=== PATIENT | female | born 1960 | race Caucasian/White ===

== ENCOUNTER 2018-05-27 12:04 | Inpatient (IN) | payer OTHER ==
[2018-05-27 16:59] LABS: ADD MAN DIFF? NO
[2018-05-27 17:05] LABS: ABNORMAL IP MESSAGE 1; BASOPHILS % 0.6 % (0.0-2.0); EOSINOPHILS # 0.1 10^3/ul (0.0-0.5); EOSINOPHILS % 2.3 % (0.0-7.0); HEMATOCRIT 27.5 % (37.0-47.0); HEMOGLOBIN 8.2 g/dl (12.0-16.0); LYMPHOCYTES # 0.8 10^3/ul (0.8-2.9); LYMPHOCYTES % 22.7 % (15.0-51.0); MEAN CORPUSCULAR HEMOGLOBIN 23.8 pg (29.0-33.0); MEAN CORPUSCULAR HGB CONC 29.8 g/dl (32.0-37.0); MEAN CORPUSCULAR VOLUME 79.9 fl (82.0-101.0); MEAN PLATELET VOLUME 10.7 fl (7.4-10.4); MONOCYTE # 0.3 10^3/ul (0.3-0.9); MONOCYTES % 9.9 % (0.0-11.0); NEUTROPHIL # 2.2 10^3/ul (1.6-7.5); NEUTROPHILS % 64.2 % (39.0-77.0); PLATELET COUNT 82 10^3/UL (140-415); RED BLOOD COUNT 3.44 10^6/ul (4.20-5.40); RED CELL DISTRIBUTION WIDTH 18.4 % (11.5-14.5)
[2018-05-27 17:05] LABS: WHITE BLOOD COUNT 3.4 10^3/ul (4.8-10.8)
[2018-05-27 17:06] LABS: POSITIVE DIFF @See below
[2018-05-27 17:12] LABS: ADD UMIC YES; UR ASCORBIC ACID NEGATIVE (NEGATIVE); UR BACTERIA FEW /HPF (NONE SEEN); UR BILIRUBIN (Dip) NEGATIVE (NEGATIVE); UR BLOOD (Dip) 2+ mg/dL (NEGATIVE); UR CALCIUM OXALATE CRYSTAL FEW /HPF (NONE SEEN); UR CLARITY SLIGHTLY CLOUDY (CLEAR); UR COLOR AMBER (YELLOW); UR GLUCOSE (Dip) NEGATIVE (NEGATIVE); UR KETONES (Dip) NEGATIVE (NEGATIVE); UR LEUKOCYTE ESTERASE (Dip) NEGATIVE Leu/ul (NEGATIVE); UR MUCUS MANY /HPF (NONE SEEN); UR NITRITE (Dip) POSITIVE (NEGATIVE); UR RBC 3 /HPF (0-5); UR SPECIFIC GRAVITY (Dip) 1.015 (1.003-1.030); UR TOTAL PROTEIN (Dip) NEGATIVE (NEGATIVE); UR UROBILINOGEN (Dip) 1+ mg/dL (NEGATIVE); UR WBC 13 /HPF (0-5)
[2018-05-27 17:23] LABS: INR 2.02; PROTIME 22.9 Sec (11.9-14.9); PT RATIO 1.8
[2018-05-27 17:24] LABS: ALANINE AMINOTRANSFERASE 24 IU/L (13-69); ALBUMIN 2.6 g/dl (3.3-4.9); ALBUMIN/GLOBULIN RATIO 0.56; ALKALINE PHOSPHATASE 187 IU/L (42-121); ANION GAP 9 (5-13); ASPARTATE AMINO TRANSFERASE 54 IU/L (15-46); BILIRUBIN,INDIRECT 1.1 mg/dl (0-1.1); BILIRUBIN,TOTAL 1.1 mg/dl (0.2-1.3); BLOOD UREA NITROGEN 4 mg/dl (7-20); CALCIUM 7.8 mg/dl (8.4-10.2); CARBON DIOXIDE 22 mmol/L (21-31); CHLORIDE 109 mmol/L (97-110); CREATININE 0.37 mg/dl (0.44-1.00); Estimated GFR > 60 mL/min (>60); GLUCOSE 136 mg/dl (70-220); LIPASE 178 U/L (23-300); POTASSIUM 3.8 mmol/L (3.5-5.1); SODIUM 140 mmol/L (135-144); TOTAL PROTEIN 7.2 g/dl (6.1-8.1)
[2018-05-27 17:34] LABS: TROPONIN-I < 0.012 ng/ml (0.000-0.120)
[2018-05-27 17:45] LABS: ANISOCYTOSIS 1+ (0-0); BAND NEUTROPHILS % (M) 1 % (0-4); BASOPHILS % (M) 1 % (0-2); HYPOCHROMASIA 1+ (0-0); LYMPHOCYTES #M 0.9 10^3/ul (0.8-2.9); LYMPHOCYTES % (M) 27 % (15-51); MICROCYTOSIS 1+ (0-0); MONOCYTE #M 0.3 10^3/ul (0.3-0.9); MONOCYTES % (M) 11 % (0-11); PLATELET ESTIMATE DECREASED; POLYCHROMASIA 2+ (0-0); SEGMENTED NEUTROPHILS (M) % 60 % (39-77); SMUDGE%M 8 % (0-0)
[2018-05-27] MEDS: LIDOCAINE 1% (MPF) 5 ML VIAL (18:00)
[2018-05-27 18:06] LABS: FLD MN% 42.2 %; FLD RBC 0 /uL; FLD WBC 659 /cmm
[2018-05-27 18:18] LABS: FLD CLARITY SLIGHTLY HAZY; FLD COLOR YELLOW
[2018-05-27 18:18] LABS: FLD TYPE ASCITES
[2018-05-27 18:23] LABS: FLD PMN% 57.8 %
[2018-05-27] MEDS: CEFTRIAXONE 1 GM/50 ML (PMX) 50 ML IVPB (19:37)
[2018-05-27 19:59] LABS: FLUID TOTAL PROTEIN < 2.0 g/dl
[2018-05-27] MEDS ORDERED: BISACODYL (EC) 5 MG TAB PO (20:00)
[2018-05-27] MEDS ORDERED: morphine 2 MG INJ IV (20:00)
[2018-05-27] MEDS ORDERED: DOCUSATE SODIUM 100 MG CAP PO (20:00)
[2018-05-27] MEDS ORDERED: ONDANSETRON 4 MG INJ IV (20:00)
[2018-05-27] MEDS ORDERED: NACL 0.9% 3 ML SYG IV (20:00)
[2018-05-27 20:47] LABS: FLUID AMYLASE < 30 U/L; FLUID TYPE FLUID
[2018-05-27 20:48] LABS: FLUID LD 184 U/L; FLUID TYPE FLUID
[2018-05-27] MEDS ORDERED: CALCIUM/VITAMIN D (500/200) TAB PO (21:00)
[2018-05-27] MEDS: CALCITRIOL 0.25 MCG CAP PO (22:53)
[2018-05-27] MEDS: ATORVASTATIN 20 MG TAB PO (22:53)
[2018-05-27] MEDS: CALCIUM/VITAMIN D (500/200) TAB PO (23:30)
[2018-05-28 04:54] LABS: ADD MAN DIFF? NO; HAAIG REFLEX REFLEX FILED
[2018-05-28 04:58] LABS: WHITE BLOOD COUNT 4.5 10^3/ul (4.8-10.8)
[2018-05-28 04:58] LABS: ABNORMAL IP MESSAGE 1; BASOPHILS % 0.4 % (0.0-2.0); EOSINOPHILS # 0.1 10^3/ul (0.0-0.5); EOSINOPHILS % 1.3 % (0.0-7.0); HEMATOCRIT 24.9 % (37.0-47.0); HEMOGLOBIN 7.6 g/dl (12.0-16.0); LYMPHOCYTES # 1.1 10^3/ul (0.8-2.9); LYMPHOCYTES % 24.5 % (15.0-51.0); MEAN CORPUSCULAR HEMOGLOBIN 23.3 pg (29.0-33.0); MEAN CORPUSCULAR HGB CONC 30.5 g/dl (32.0-37.0); MEAN CORPUSCULAR VOLUME 76.4 fl (82.0-101.0); MEAN PLATELET VOLUME 10.1 fl (7.4-10.4); MONOCYTE # 0.5 10^3/ul (0.3-0.9); MONOCYTES % 10.2 % (0.0-11.0); NEUTROPHIL # 2.9 10^3/ul (1.6-7.5); NEUTROPHILS % 63.4 % (39.0-77.0); PLATELET COUNT 75 10^3/UL (140-415); RED BLOOD COUNT 3.26 10^6/ul (4.20-5.40); RED CELL DISTRIBUTION WIDTH 18.4 % (11.5-14.5)
[2018-05-28 05:12] LABS: HEMOGLOBIN A1C 5.3 % (0-5.9)
[2018-05-28 05:16] LABS: IRON 29 ug/dl (35-150)
[2018-05-28 05:18] LABS: ALANINE AMINOTRANSFERASE 38 IU/L (13-69); ALBUMIN 2.1 g/dl (3.3-4.9); ALKALINE PHOSPHATASE 149 IU/L (42-121); ANION GAP 8 (5-13); ASPARTATE AMINO TRANSFERASE 40 IU/L (15-46); BILIRUBIN,INDIRECT 1.3 mg/dl (0-1.1); BILIRUBIN,TOTAL 1.3 mg/dl (0.2-1.3); BLOOD UREA NITROGEN 3 mg/dl (7-20); CARBON DIOXIDE 23 mmol/L (21-31); CHLORIDE 107 mmol/L (97-110); CHOL/HDL RATIO 3.5 RATIO; CHOLESTEROL 67 mg/dl (100-200); CREATININE 0.35 mg/dl (0.44-1.00); Estimated GFR > 60 mL/min (>60); GLUCOSE 84 mg/dl (70-220); HDL CHOLESTEROL 19 mg/dl (37-92); LDL CHOLESTEROL,CALCULATED 36 mg/dl; MAGNESIUM 1.7 mg/dl (1.7-2.5); POTASSIUM 3.3 mmol/L (3.5-5.1); SODIUM 138 mmol/L (135-144); TOTAL PROTEIN 6.3 g/dl (6.1-8.1); TRIGLYCERIDES 62 mg/dl (0-149)
[2018-05-28 05:25] LABS: POSITIVE DIFF @See below
[2018-05-28 05:27] LABS: % IRON SATURATION 10 % SAT (22-52); TOTAL IRON BINDING CAPACITY 286 ug/dl (241-421)
[2018-05-28 05:49] LABS: HEPATITIS B SURFACE ANTIGEN NEGATIVE (NEGATIVE)
[2018-05-28 05:54] LABS: FERRITIN 10.8 ng/ml (11.1-264.0)
[2018-05-28 06:06] LABS: HEPATITIS B CORE ANTIBODY NEGATIVE (NEGATIVE); HEPATITIS C VIRAL ANTIBODY NEGATIVE (NEGATIVE)
[2018-05-28 06:07] LABS: HEPATITIS B SURFACE ANTIBODY NEGATIVE (NEGATIVE)
[2018-05-28 06:59] LABS: AMMONIA 60 umol/l (9-30)
[2018-05-28 07:45] LABS: LACTIC ACID 1.5 mmol/L (0.5-2.0)
[2018-05-28] MEDS: ACETAMINOPHEN 325 MG TAB PO (08:30)
[2018-05-28] MEDS: LEVOTHYROXINE 75 MCG TAB PO (08:30)
[2018-05-28] MEDS: PANTOPRAZOLE (EC) 40 MG TAB PO (08:30)
[2018-05-28] MEDS: LACTULOSE 30ML CUP PO ×3 (09:31→17:43)
[2018-05-28] MEDS: CALCIUM/VITAMIN D (500/200) TAB PO ×2 (09:31→22:24)
[2018-05-28] MEDS: POTASSIUM CHLORIDE (SR) 20 MEQ TAB PO (09:32)
[2018-05-28] MEDS: CALCITRIOL 0.25 MCG CAP PO ×2 (09:33→22:24)
[2018-05-28 12:47] LABS: OCCULT BLOOD STOOL NEGATIVE (NEGATIVE)
[2018-05-28] MEDS: ALBUMIN HUMAN 25% 100 ML IV ×2 (13:44→19:33)
[2018-05-28] MEDS ORDERED: morphine LIQ (10 MG/5 ML) CUP PO (15:00)
[2018-05-28] MEDS: CEFTRIAXONE 1 GM/50 ML (PMX) 50 ML IVPB (17:40)
[2018-05-28] MEDS: ATORVASTATIN 20 MG TAB PO (22:24)
[2018-05-29] MEDS: ALBUMIN HUMAN 25% 100 ML IV (01:36)
[2018-05-29 04:58] LABS: ADD MAN DIFF? NO
[2018-05-29 05:07] LABS: HEMATOCRIT 22.6 % (37.0-47.0); MEAN CORPUSCULAR HEMOGLOBIN 23.5 pg (29.0-33.0); MEAN CORPUSCULAR HGB CONC 30.1 g/dl (32.0-37.0); MEAN CORPUSCULAR VOLUME 78.2 fl (82.0-101.0); MEAN PLATELET VOLUME 10.7 fl (7.4-10.4); PLATELET COUNT 74 10^3/UL (140-415); RED BLOOD COUNT 2.89 10^6/ul (4.20-5.40); RED CELL DISTRIBUTION WIDTH 18.5 % (11.5-14.5)
[2018-05-29 05:07] LABS: WHITE BLOOD COUNT 2.4 10^3/ul (4.8-10.8)
[2018-05-29 05:26] LABS: AMMONIA 56 umol/l (9-30)
[2018-05-29 05:28] LABS: ALANINE AMINOTRANSFERASE 28 IU/L (13-69); ALBUMIN 2.8 g/dl (3.3-4.9); ALBUMIN/GLOBULIN RATIO 0.77; ALKALINE PHOSPHATASE 151 IU/L (42-121); ANION GAP 13 (5-13); ASPARTATE AMINO TRANSFERASE 35 IU/L (15-46); BLOOD UREA NITROGEN 4 mg/dl (7-20); CARBON DIOXIDE 22 mmol/L (21-31); CHLORIDE 108 mmol/L (97-110); CREATININE 0.34 mg/dl (0.44-1.00); Estimated GFR > 60 mL/min (>60); GLUCOSE 91 mg/dl (70-220); POTASSIUM 3.6 mmol/L (3.5-5.1); SODIUM 143 mmol/L (135-144); TOTAL PROTEIN 6.4 g/dl (6.1-8.1)
[2018-05-29] MEDS: LEVOTHYROXINE 75 MCG TAB PO (06:18)
[2018-05-29] MEDS: PANTOPRAZOLE (EC) 40 MG TAB PO (06:18)
[2018-05-29] MEDS: LACTULOSE 30ML CUP PO ×5 (06:18→23:37)
[2018-05-29 06:36] LABS: POSITIVE DIFF @See below
[2018-05-29 06:40] LABS: HEMOGLOBIN 6.8 g/dl (12.0-16.0)
[2018-05-29 06:41] LABS: PATH REVIEW? YES
[2018-05-29] MEDS: CALCIUM/VITAMIN D (500/200) TAB PO ×2 (09:05→21:02)
[2018-05-29] MEDS: CALCITRIOL 0.25 MCG CAP PO ×2 (09:05→21:02)
[2018-05-29 09:47] LABS: ANISOCYTOSIS 2+ (0-0); BAND NEUTROPHILS % (M) 3 % (0-4); EOSINOPHILS % (M) 1 % (0-7); HYPOCHROMASIA 3+ (0-0); LYMPHOCYTES #M 0.4 10^3/ul (0.8-2.9); LYMPHOCYTES % (M) 18 % (15-51); MICROCYTOSIS 2+ (0-0); MONOCYTE #M 0.2 10^3/ul (0.3-0.9); MONOCYTES % (M) 9 % (0-11); OVALOCYTES 1+ (0-0); PLATELET ESTIMATE DECREASED; POIKILOCYTOSIS 1+ (0-0); POLYCHROMASIA 3+ (0-0); REACTIVE LYMPHOCYTES% (M) 1 % (0-0); SEG NEUT #M 1.6 10^3/ul (1.6-7.5); SEGMENTED NEUTROPHILS (M) % 68 % (39-77); SMUDGE%M 14 % (0-0)
[2018-05-29 10:34] LABS: HEMATOCRIT 23.8 % (37.0-47.0)
[2018-05-29 11:34] LABS: IMMEDIATE SPIN CROSSMATCH 1 3
[2018-05-29] MEDS: SOD FERRIC GLUC COMPLX 125 MG in SOD CHLORIDE 0.9% 100 ML IVPB (15:25)
[2018-05-29] MEDS: CEFTRIAXONE 1 GM/50 ML (PMX) 50 ML IVPB (18:20)
[2018-05-29] MEDS: ACETAMINOPHEN 325 MG TAB PO (19:45)
[2018-05-29] MEDS: RIFAXIMIN 550 MG TAB PO (21:02)
[2018-05-30 05:18] LABS: ADD MAN DIFF? NO
[2018-05-30 05:23] LABS: ABNORMAL IP MESSAGE 1; BASOPHILS % 0.7 % (0.0-2.0); EOSINOPHILS # 0.1 10^3/ul (0.0-0.5); EOSINOPHILS % 3.5 % (0.0-7.0); LYMPHOCYTES % 35.1 % (15.0-51.0); MEAN CORPUSCULAR HEMOGLOBIN 24.1 pg (29.0-33.0); MEAN CORPUSCULAR VOLUME 77.7 fl (82.0-101.0); MEAN PLATELET VOLUME 10.3 fl (7.4-10.4); MONOCYTE # 0.4 10^3/ul (0.3-0.9); MONOCYTES % 12.8 % (0.0-11.0); NEUTROPHIL # 1.3 10^3/ul (1.6-7.5); NEUTROPHILS % 47.5 % (39.0-77.0); PLATELET COUNT 76 10^3/UL (140-415); RED BLOOD COUNT 3.73 10^6/ul (4.20-5.40); RED CELL DISTRIBUTION WIDTH 18.3 % (11.5-14.5)
[2018-05-30 05:23] LABS: WHITE BLOOD COUNT 2.8 10^3/ul (4.8-10.8)
[2018-05-30 05:30] LABS: POSITIVE DIFF @See below
[2018-05-30] MEDS: PANTOPRAZOLE (EC) 40 MG TAB PO (05:42)
[2018-05-30] MEDS: LACTULOSE 30ML CUP PO ×4 (05:42→23:01)
[2018-05-30] MEDS: LEVOTHYROXINE 75 MCG TAB PO (05:42)
[2018-05-30 05:44] LABS: ALANINE AMINOTRANSFERASE 28 IU/L (13-69); ALBUMIN 2.9 g/dl (3.3-4.9); ALBUMIN/GLOBULIN RATIO 0.74; ALKALINE PHOSPHATASE 146 IU/L (42-121); ANION GAP 14 (5-13); ASPARTATE AMINO TRANSFERASE 44 IU/L (15-46); BLOOD UREA NITROGEN 3 mg/dl (7-20); CALCIUM 8.2 mg/dl (8.4-10.2); CARBON DIOXIDE 20 mmol/L (21-31); CHLORIDE 110 mmol/L (97-110); CREATININE 0.38 mg/dl (0.44-1.00); Estimated GFR > 60 mL/min (>60); GLUCOSE 61 mg/dl (70-220); POTASSIUM 3.7 mmol/L (3.5-5.1); SODIUM 144 mmol/L (135-144); TOTAL PROTEIN 6.8 g/dl (6.1-8.1)
[2018-05-30 05:57] LABS: PHOSPHORUS 3.9 mg/dl (2.5-4.9)
[2018-05-30 05:57] LABS: MAGNESIUM 1.9 mg/dl (1.7-2.5)
[2018-05-30 05:58] LABS: AMMONIA 47 umol/l (9-30)
[2018-05-30] MEDS: RIFAXIMIN 550 MG TAB PO ×2 (09:52→20:26)
[2018-05-30] MEDS: CALCITRIOL 0.25 MCG CAP PO ×2 (09:52→20:26)
[2018-05-30] MEDS: BISACODYL (EC) 5 MG TAB PO ×2 (09:52→17:08)
[2018-05-30] MEDS: CALCIUM/VITAMIN D (500/200) TAB PO ×2 (09:52→20:27)
[2018-05-30] MEDS: POLYETHYLENE GLYCOL 3350 119 GM POWDER PO ×2 (10:00→17:08)
[2018-05-30 10:37] LABS: OCCULT BLOOD STOOL NEGATIVE (NEGATIVE)
[2018-05-30] MEDS: MAGNESIUM CITRATE 300 ML BTL PO (11:18)
[2018-05-30] MEDS: SOD FERRIC GLUC COMPLX 125 MG in SOD CHLORIDE 0.9% 100 ML IVPB (12:35)
[2018-05-30] MEDS: PHYTONADIONE 10 MG/ML INJ SC (17:08)
[2018-05-30] MEDS: CEFTRIAXONE 1 GM/50 ML (PMX) 50 ML IVPB (17:39)
[2018-05-30] MEDS: ZOLPIDEM 5 MG TAB PO (23:01)
[2018-05-31 04:53] LABS: ADD MAN DIFF? NO
[2018-05-31 04:57] LABS: ABNORMAL IP MESSAGE 1; BASOPHILS % 0.8 % (0.0-2.0); EOSINOPHILS # 0.1 10^3/ul (0.0-0.5); EOSINOPHILS % 3.8 % (0.0-7.0); HEMATOCRIT 29.8 % (37.0-47.0); LYMPHOCYTES # 0.9 10^3/ul (0.8-2.9); LYMPHOCYTES % 33.8 % (15.0-51.0); MEAN CORPUSCULAR HEMOGLOBIN 23.6 pg (29.0-33.0); MEAN CORPUSCULAR HGB CONC 30.2 g/dl (32.0-37.0); MEAN CORPUSCULAR VOLUME 78.2 fl (82.0-101.0); MEAN PLATELET VOLUME 9.7 fl (7.4-10.4); MONOCYTE # 0.3 10^3/ul (0.3-0.9); MONOCYTES % 10.5 % (0.0-11.0); NEUTROPHIL # 1.4 10^3/ul (1.6-7.5); NEUTROPHILS % 51.1 % (39.0-77.0); PLATELET COUNT 67 10^3/UL (140-415); RED BLOOD COUNT 3.81 10^6/ul (4.20-5.40); RED CELL DISTRIBUTION WIDTH 18.6 % (11.5-14.5)
[2018-05-31 04:57] LABS: WHITE BLOOD COUNT 2.7 10^3/ul (4.8-10.8)
[2018-05-31 05:25] LABS: PHOSPHORUS 4.6 mg/dl (2.5-4.9)
[2018-05-31 05:25] LABS: MAGNESIUM 1.9 mg/dl (1.7-2.5)
[2018-05-31] MEDS: PANTOPRAZOLE (EC) 40 MG TAB PO (05:26)
[2018-05-31] MEDS: LACTULOSE 30ML CUP PO ×4 (05:26→22:59)
[2018-05-31] MEDS: LEVOTHYROXINE 75 MCG TAB PO (05:26)
[2018-05-31 05:27] LABS: AMMONIA 53 umol/l (9-30)
[2018-05-31 05:30] LABS: ALANINE AMINOTRANSFERASE 33 IU/L (13-69); ALBUMIN 2.8 g/dl (3.3-4.9); ALBUMIN/GLOBULIN RATIO 0.73; ALKALINE PHOSPHATASE 132 IU/L (42-121); ANION GAP 13 (5-13); ASPARTATE AMINO TRANSFERASE 48 IU/L (15-46); BILIRUBIN,INDIRECT 1.6 mg/dl (0-1.1); BILIRUBIN,TOTAL 1.6 mg/dl (0.2-1.3); BLOOD UREA NITROGEN 7 mg/dl (7-20); CALCIUM 8.2 mg/dl (8.4-10.2); CARBON DIOXIDE 22 mmol/L (21-31); CHLORIDE 111 mmol/L (97-110); CREATININE 0.41 mg/dl (0.44-1.00); Estimated GFR > 60 mL/min (>60); GLUCOSE 76 mg/dl (70-220); INR 2.58; PROTIME 27.7 Sec (11.9-14.9); PT RATIO 2.2; SODIUM 146 mmol/L (135-144); TOTAL PROTEIN 6.6 g/dl (6.1-8.1)
[2018-05-31 05:41] LABS: POSITIVE DIFF @See below
[2018-05-31] MEDS ORDERED: EPHEDrine SULFATE 50 MG/5 ML SYG (07:00)
[2018-05-31] MEDS: CALCIUM/VITAMIN D (500/200) TAB PO ×2 (09:16→20:25)
[2018-05-31] MEDS: CALCITRIOL 0.25 MCG CAP PO ×2 (09:16→20:25)
[2018-05-31] MEDS: RIFAXIMIN 550 MG TAB PO ×2 (09:16→20:25)
[2018-05-31] MEDS: PHYTONADIONE 10 MG/ML INJ SC (09:17)
[2018-05-31 10:16] LABS: ALPHA 1 ANTITRYPSIN 128 mg/dL (83-199)
[2018-05-31 11:06] LABS: MITOCHONDRIAL TB NEGATIVE (NEGATIVE)
[2018-05-31] MEDS: PROPOFOL 20 ML (13:00)
[2018-05-31] MEDS ORDERED: ONDANSETRON 4 MG INJ IV (13:30)
[2018-05-31] MEDS: SOD FERRIC GLUC COMPLX 125 MG in SOD CHLORIDE 0.9% 100 ML IVPB (13:58)
[2018-05-31] MEDS: POTASSIUM CHLORIDE 100 ML IVPB (16:08)
[2018-05-31] MEDS: CEFTRIAXONE 1 GM/50 ML (PMX) 50 ML IVPB (18:15)
[2018-05-31 19:38] LABS: ANA SCREEN POSITIVE (NEGATIVE)
[2018-05-31 20:22] LABS: ANA PATTERN HOMOGENEOUS
[2018-05-31] MEDS: ZOLPIDEM 5 MG TAB PO (22:59)
[2018-06-01] MEDS: PANTOPRAZOLE (EC) 40 MG TAB PO ×2 (05:44→21:29)
[2018-06-01] MEDS: LEVOTHYROXINE 75 MCG TAB PO (05:44)
[2018-06-01] MEDS: LACTULOSE 30ML CUP PO ×4 (05:44→23:02)
[2018-06-01 05:48] LABS: ABNORMAL IP MESSAGE 1; HEMATOCRIT 26.6 % (37.0-47.0); HEMOGLOBIN 8.1 g/dl (12.0-16.0); MEAN CORPUSCULAR HGB CONC 30.5 g/dl (32.0-37.0); MEAN CORPUSCULAR VOLUME 78.9 fl (82.0-101.0); MEAN PLATELET VOLUME 10.3 fl (7.4-10.4); NUCLEATED RED BLOOD CELLS% 0.9 /100WBC (0.0-0.0); PLATELET COUNT 67 10^3/UL (140-415); RED BLOOD COUNT 3.37 10^6/ul (4.20-5.40); RED CELL DISTRIBUTION WIDTH 18.7 % (11.5-14.5)
[2018-06-01 05:48] LABS: WHITE BLOOD COUNT 2.3 10^3/ul (4.8-10.8)
[2018-06-01 06:08] LABS: PHOSPHORUS 3.9 mg/dl (2.5-4.9)
[2018-06-01 06:08] LABS: MAGNESIUM 1.8 mg/dl (1.7-2.5)
[2018-06-01 06:17] LABS: ADD MAN DIFF? YES; POSITIVE DIFF @See below
[2018-06-01 06:19] LABS: ALANINE AMINOTRANSFERASE 36 IU/L (13-69); ALBUMIN 2.6 g/dl (3.3-4.9); ALKALINE PHOSPHATASE 139 IU/L (42-121); ANION GAP 8 (5-13); ASPARTATE AMINO TRANSFERASE 50 IU/L (15-46); BILIRUBIN,INDIRECT 1.3 mg/dl (0-1.1); BILIRUBIN,TOTAL 1.3 mg/dl (0.2-1.3); BLOOD UREA NITROGEN 7 mg/dl (7-20); CALCIUM 8.1 mg/dl (8.4-10.2); CARBON DIOXIDE 22 mmol/L (21-31); CHLORIDE 113 mmol/L (97-110); CREATININE 0.37 mg/dl (0.44-1.00); Estimated GFR > 60 mL/min (>60); GLUCOSE 74 mg/dl (70-220); SODIUM 143 mmol/L (135-144); TOTAL PROTEIN 6.3 g/dl (6.1-8.1)
[2018-06-01 06:31] LABS: POTASSIUM 2.9 mmol/L (3.5-5.1)
[2018-06-01 07:35] LABS: ANISOCYTOSIS 1+ (0-0); BAND NEUTROPHILS % (M) 2 % (0-4); BURR CELLS 1+ (0-0); EOSINOPHILS % (M) 2 % (0-7); GIANT THROMBO% (M) 3 % (0-0); LYMPHOCYTES #M 0.3 10^3/ul (0.8-2.9); LYMPHOCYTES % (M) 15 % (15-51); MONOCYTE #M 0.1 10^3/ul (0.3-0.9); MONOCYTES % (M) 5 % (0-11); OVALOCYTES 1+ (0-0); PLATELET ESTIMATE DECREASED; POIKILOCYTOSIS 1+ (0-0); POLYCHROMASIA 1+ (0-0); SEG NEUT #M 1.7 10^3/ul (1.6-7.5); SEGMENTED NEUTROPHILS (M) % 76 % (39-77); SMUDGE%M 40 % (0-0); TARGET CELLS 1+ (0-0)
[2018-06-01] MEDS: POTASSIUM CHLORIDE (SR) 20 MEQ TAB PO ×2 (08:10→12:49)
[2018-06-01] MEDS: RIFAXIMIN 550 MG TAB PO ×2 (08:11→21:29)
[2018-06-01] MEDS: CALCIUM/VITAMIN D (500/200) TAB PO ×2 (08:11→21:29)
[2018-06-01] MEDS: CALCITRIOL 0.25 MCG CAP PO ×2 (08:11→21:29)
[2018-06-01] MEDS: SOD FERRIC GLUC COMPLX 125 MG in SOD CHLORIDE 0.9% 100 ML IVPB (12:50)
[2018-06-01] MEDS ORDERED: POTASSIUM CHLORIDE 20 MEQ POWDER FOR ORAL SOLN PO (13:00)
[2018-06-01] MEDS: CEFTRIAXONE 1 GM/50 ML (PMX) 50 ML IVPB (17:09)
[2018-06-01] MEDS: SUCRALFATE (100 MG/ML) 10ML CUP PO ×2 (17:09→21:29)
[2018-06-01] MEDS: PROPRANOLOL 10 MG TAB PO (21:00)
[2018-06-01] MEDS: LACTOBACILLUS RHAMNOSUS CAP PO (21:29)
[2018-06-01] MEDS: POTASSIUM CHLORIDE 20 MEQ POWDER FOR ORAL SOLN PO (21:30)
[2018-06-01] MEDS: ZOLPIDEM 5 MG TAB PO (23:02)
[2018-06-02 05:13] LABS: ADD MAN DIFF? NO
[2018-06-02 05:20] LABS: WHITE BLOOD COUNT 2.5 10^3/ul (4.8-10.8)
[2018-06-02 05:20] LABS: ABNORMAL IP MESSAGE 1; BASOPHILS % 0.4 % (0.0-2.0); EOSINOPHILS # 0.1 10^3/ul (0.0-0.5); EOSINOPHILS % 4.1 % (0.0-7.0); HEMATOCRIT 28.3 % (37.0-47.0); HEMOGLOBIN 8.7 g/dl (12.0-16.0); LYMPHOCYTES # 0.8 10^3/ul (0.8-2.9); LYMPHOCYTES % 34.3 % (15.0-51.0); MEAN CORPUSCULAR HEMOGLOBIN 24.3 pg (29.0-33.0); MEAN CORPUSCULAR HGB CONC 30.7 g/dl (32.0-37.0); MEAN CORPUSCULAR VOLUME 79.1 fl (82.0-101.0); MEAN PLATELET VOLUME 10.3 fl (7.4-10.4); MONOCYTE # 0.2 10^3/ul (0.3-0.9); NEUTROPHIL # 1.3 10^3/ul (1.6-7.5); NEUTROPHILS % 51.8 % (39.0-77.0); PLATELET COUNT 67 10^3/UL (140-415); RED BLOOD COUNT 3.58 10^6/ul (4.20-5.40); RED CELL DISTRIBUTION WIDTH 19.7 % (11.5-14.5)
[2018-06-02 05:26] LABS: POSITIVE DIFF @See below
[2018-06-02 05:32] LABS: ANION GAP 6 (5-13); BLOOD UREA NITROGEN 4 mg/dl (7-20); CALCIUM 8.6 mg/dl (8.4-10.2); CARBON DIOXIDE 22 mmol/L (21-31); CHLORIDE 117 mmol/L (97-110); CREATININE 0.38 mg/dl (0.44-1.00); Estimated GFR > 60 mL/min (>60); GLUCOSE 74 mg/dl (70-220); POTASSIUM 4.3 mmol/L (3.5-5.1); SODIUM 145 mmol/L (135-144)
[2018-06-02] MEDS: LACTULOSE 30ML CUP PO ×3 (05:39→21:06)
[2018-06-02] MEDS: LEVOTHYROXINE 75 MCG TAB PO (05:39)
[2018-06-02 05:44] LABS: AMMONIA 41 umol/l (9-30)
[2018-06-02] MEDS: SUCRALFATE (100 MG/ML) 10ML CUP PO ×4 (08:26→20:50)
[2018-06-02] MEDS: RIFAXIMIN 550 MG TAB PO ×2 (08:26→20:51)
[2018-06-02] MEDS: CALCITRIOL 0.25 MCG CAP PO ×2 (08:26→20:51)
[2018-06-02] MEDS: PANTOPRAZOLE (EC) 40 MG TAB PO ×2 (08:26→20:51)
[2018-06-02] MEDS: LACTOBACILLUS RHAMNOSUS CAP PO ×2 (08:27→20:51)
[2018-06-02] MEDS: POTASSIUM CHLORIDE 20 MEQ POWDER FOR ORAL SOLN PO ×2 (08:27→20:50)
[2018-06-02] MEDS: CALCIUM/VITAMIN D (500/200) TAB PO ×2 (08:27→20:50)
[2018-06-02] MEDS: PROPRANOLOL 10 MG TAB PO ×2 (08:31→20:56)
[2018-06-02] MEDS: SOD FERRIC GLUC COMPLX 125 MG in SOD CHLORIDE 0.9% 100 ML IVPB (12:50)
[2018-06-02] MEDS: CEFTRIAXONE 1 GM/50 ML (PMX) 50 ML IVPB (17:22)
[2018-06-02] MEDS: ACETAMINOPHEN 325 MG TAB PO (20:57)
[2018-06-03 04:59] LABS: ADD MAN DIFF? NO
[2018-06-03 05:05] LABS: WHITE BLOOD COUNT 2.7 10^3/ul (4.8-10.8)
[2018-06-03 05:06] LABS: ABNORMAL IP MESSAGE 1; BASOPHILS % 0.4 % (0.0-2.0); EOSINOPHILS # 0.2 10^3/ul (0.0-0.5); EOSINOPHILS % 5.5 % (0.0-7.0); HEMATOCRIT 29.6 % (37.0-47.0); HEMOGLOBIN 8.9 g/dl (12.0-16.0); LYMPHOCYTES # 0.8 10^3/ul (0.8-2.9); LYMPHOCYTES % 30.3 % (15.0-51.0); MEAN CORPUSCULAR HEMOGLOBIN 24.1 pg (29.0-33.0); MEAN CORPUSCULAR HGB CONC 30.1 g/dl (32.0-37.0); MEAN CORPUSCULAR VOLUME 80.2 fl (82.0-101.0); MONOCYTE # 0.3 10^3/ul (0.3-0.9); MONOCYTES % 9.2 % (0.0-11.0); NEUTROPHIL # 1.5 10^3/ul (1.6-7.5); NEUTROPHILS % 54.2 % (39.0-77.0); PLATELET COUNT 66 10^3/UL (140-415); RED BLOOD COUNT 3.69 10^6/ul (4.20-5.40); RED CELL DISTRIBUTION WIDTH 20.2 % (11.5-14.5)
[2018-06-03 05:26] LABS: ALANINE AMINOTRANSFERASE 33 IU/L (13-69); ALBUMIN 2.7 g/dl (3.3-4.9); ALBUMIN/GLOBULIN RATIO 0.67; ALKALINE PHOSPHATASE 166 IU/L (42-121); ANION GAP 3 (5-13); ASPARTATE AMINO TRANSFERASE 60 IU/L (15-46); BILIRUBIN,INDIRECT 1.3 mg/dl (0-1.1); BILIRUBIN,TOTAL 1.3 mg/dl (0.2-1.3); BLOOD UREA NITROGEN 4 mg/dl (7-20); CALCIUM 8.8 mg/dl (8.4-10.2); CARBON DIOXIDE 23 mmol/L (21-31); CHLORIDE 115 mmol/L (97-110); CREATININE 0.41 mg/dl (0.44-1.00); Estimated GFR > 60 mL/min (>60); GLUCOSE 81 mg/dl (70-220); POTASSIUM 4.7 mmol/L (3.5-5.1); SODIUM 141 mmol/L (135-144); TOTAL PROTEIN 6.7 g/dl (6.1-8.1)
[2018-06-03 05:30] LABS: AMMONIA 20 umol/l (9-30)
[2018-06-03] MEDS: LACTULOSE 30ML CUP PO ×2 (05:37→12:30)
[2018-06-03] MEDS: LEVOTHYROXINE 75 MCG TAB PO (05:37)
[2018-06-03 06:16] LABS: POSITIVE DIFF @See below
[2018-06-03] MEDS: LACTOBACILLUS RHAMNOSUS CAP PO (08:57)
[2018-06-03] MEDS: CALCITRIOL 0.25 MCG CAP PO (08:57)
[2018-06-03] MEDS: CALCIUM/VITAMIN D (500/200) TAB PO (08:58)
[2018-06-03] MEDS: POTASSIUM CHLORIDE 20 MEQ POWDER FOR ORAL SOLN PO (08:58)
[2018-06-03] MEDS: PANTOPRAZOLE (EC) 40 MG TAB PO (08:58)
[2018-06-03] MEDS: SUCRALFATE (100 MG/ML) 10ML CUP PO ×3 (08:58→17:51)
[2018-06-03] MEDS: PROPRANOLOL 10 MG TAB PO (08:58)
[2018-06-03] MEDS: RIFAXIMIN 550 MG TAB PO (08:58)
[2018-06-03] MEDS ORDERED: LACTULOSE 30ML CUP PO (22:00)
[2018-06-03] MEDS ORDERED: metroNIDAZOLE 500 MG TAB PO (22:00)
[2018-06-04] MEDS ORDERED: LEVOFLOXACIN 500 MG TAB PO (06:00)
== END 2018-06-03 18:45 | disposition home or self-care (01) | DRG 432 ==
LOC: E/R 12:04 → MS1 19:32
PROC: 0W9G3ZX Drainage of Peritoneal Cavity, Percutaneous Approach, Diagnostic (ICD-10-PCS; principal; 2018-05-31 11:44)
PROC: 0DJ08ZZ Inspection of Upper Intestinal Tract, Via Natural or Artificial Opening Endoscopic (ICD-10-PCS; 2018-05-31 11:44)
PROC: 0DJD8ZZ Inspection of Lower Intestinal Tract, Via Natural or Artificial Opening Endoscopic (ICD-10-PCS; 2018-05-31 11:44)
PROC: 30233N0 Transfusion of Autologous Red Blood Cells into Peripheral Vein, Percutaneous Approach (ICD-10-PCS; 2018-05-31 11:44)
DX: K74.69 Other cirrhosis of liver (principal); K65.2 Spontaneous bacterial peritonitis; D61.818 Other pancytopenia; D68.4 Acquired coagulation factor deficiency; E87.2 Acidosis; I85.10 Secondary esophageal varices without bleeding; N39.0 Urinary tract infection, site not specified; K72.90 Hepatic failure, unspecified without coma; E03.9 Hypothyroidism, unspecified; E78.5 Hyperlipidemia, unspecified; K25.9 Gastric ulcer, unspecified as acute or chronic, without hemorrhage or perforation; K64.8 Other hemorrhoids; K22.8 Other specified diseases of esophagus; E86.0 Dehydration
CPT/HCPCS: 36430; 74182; 76705; 80048; 80053; 80061; 81001; 82042; 82103; 82105; 82140; 82150; 82270; 82728; 83036; 83540; 83605; 83615; 83690; 83735; 83986; 84100; 84157; 84443; 84484; 85014; 85018; 85025; 85610; 86038; 86255; 86644; 86704; 86706; 86708; 86709; 86803; 86850; 86900; 86901; 86920; 87040; 87045; 87070; 87075; 87086; 87102; 87116; 87177; 87205; 87340; 88104; 88305; 89051; 99285-25

== ENCOUNTER 2019-01-07 15:59 | Emergency (ER) | payer OTHER ==
[2019-01-07 16:37] LABS: ADD MAN DIFF? NO
[2019-01-07 16:42] LABS: ABNORMAL IP MESSAGE 1; BASOPHILS % 0.7 % (0.0-2.0); EOSINOPHILS # 0.1 10^3/ul (0.0-0.5); EOSINOPHILS % 3.3 % (0.0-7.0); HEMATOCRIT 30.3 % (37.0-47.0); HEMOGLOBIN 9.9 g/dl (12.0-16.0); LYMPHOCYTES # 1.2 10^3/ul (0.8-2.9); LYMPHOCYTES % 29.4 % (15.0-51.0); MEAN CORPUSCULAR HGB CONC 32.7 g/dl (32.0-37.0); MEAN PLATELET VOLUME 10.7 fl (7.4-10.4); MONOCYTE # 0.5 10^3/ul (0.3-0.9); MONOCYTES % 10.9 % (0.0-11.0); NEUTROPHIL # 2.4 10^3/ul (1.6-7.5); NEUTROPHILS % 55.7 % (39.0-77.0); PLATELET COUNT 56 10^3/UL (140-415); RED BLOOD COUNT 3.19 10^6/ul (4.20-5.40); RED CELL DISTRIBUTION WIDTH 16.9 % (11.5-14.5)
[2019-01-07 16:42] LABS: WHITE BLOOD COUNT 4.2 10^3/ul (4.8-10.8)
[2019-01-07] MEDS: HYDROCODONE/APAP (10/325) TAB PO (16:47)
[2019-01-07] MEDS: ONDANSETRON (ODT) 4 MG TAB ODT (16:47)
[2019-01-07 16:59] LABS: ALANINE AMINOTRANSFERASE 31 IU/L (13-69); ALBUMIN 2.6 g/dl (3.3-4.9); ALBUMIN/GLOBULIN RATIO 0.59; ALKALINE PHOSPHATASE 252 IU/L (42-121); ANION GAP 5 (5-13); ASPARTATE AMINO TRANSFERASE 46 IU/L (15-46); BILIRUBIN,INDIRECT 1.4 mg/dl (0-1.1); BILIRUBIN,TOTAL 1.7 mg/dl (0.2-1.3); BLOOD UREA NITROGEN 5 mg/dl (7-20); CALCIUM 8.3 mg/dl (8.4-10.2); CARBON DIOXIDE 23 mmol/L (21-31); CHLORIDE 108 mmol/L (97-110); CREATININE 0.43 mg/dl (0.44-1.00); Estimated GFR > 60 mL/min (>60); GLUCOSE 132 mg/dl (70-220); POTASSIUM 3.6 mmol/L (3.5-5.1); SODIUM 136 mmol/L (135-144)
[2019-01-07 17:02] LABS: POSITIVE DIFF @See below
[2019-01-07 17:04] LABS: INR 1.96; PROTIME 22.4 Sec (11.9-14.9); PT RATIO 1.8
[2019-01-07 17:05] LABS: PARTIAL THROMBOPLASTIN TIME 44.9 Sec (23.0-35.0)
[2019-01-07] MEDS: LIDOCAINE 1% (MPF) 5 ML VIAL (18:22)
== END 2019-01-07 18:18 | disposition home or self-care (01) ==
LOC: E/R 15:59
DX: S80.11XA Contusion of right lower leg, initial encounter (principal); R18.8 Other ascites; R40.2142 Coma scale, eyes open, spontaneous, at arrival to emergency department; R40.2362 Coma scale, best motor response, obeys commands, at arrival to emergency department; R07.81 Pleurodynia; W19.XXXA Unspecified fall, initial encounter; Y92.9 Unspecified place or not applicable
CPT/HCPCS: 71045; 73590; 80053; 85025; 85610; 85730; 99285-25

== ENCOUNTER 2019-01-26 10:41 | Emergency (ER) | payer OTHER ==
[2019-01-26] MEDS: LIDOCAINE 1% (MPF) 5 ML VIAL (14:49)
== END 2019-01-26 15:10 | disposition home or self-care (01) ==
LOC: E/R 10:41
DX: K74.60 Unspecified cirrhosis of liver (principal); R18.8 Other ascites; R74.0 Nonspecific elevation of levels of transaminase and lactic acid dehydrogenase [LDH]; E11.9 Type 2 diabetes mellitus without complications; E03.9 Hypothyroidism, unspecified; Z79.84 Long term (current) use of oral hypoglycemic drugs
CPT/HCPCS: 49083; 80053; 83690; 85025; 85610; 85730; 99285-25